=== PATIENT | female | born 1965 ===

== ENCOUNTER 2017-01-13 20:02 | Emergency (ER) | payer MEDICAID ==
[2017-01-13 20:19] VITALS: BMI 25.3
[2017-01-13 20:21] VITALS: BP 106/71; PULSE 98; RESP 19; TEMP 98.4; O2SAT 99
[2017-01-13] MEDS ORDERED: Oxycodone/Acetaminophen 10/325 mg Tab PO STA (20:37)
--- NOTE | 2017-01-13 20:47 | ED PDOC ---
Arrival/HPI <Jose Cardoza - Last Filed: 01/13/17 21:49> <HaydeMariposa - Last Filed: 01/13/17 22:50> - General Chief Complaint: Trauma Time Seen by Provider: 01/13/17 20:22 - History of Present Illness Narrative History of Present Illness (Text): CC: fall last night and pain in wrist arm and shoulder This patient is a 51yo F w/ no Past medical history who is coming to the ER after she fell last night walking down the stairs when it was dark, missed her foot, and fell onto her right hand outstretched and now has pain at her right wrist, right humerus and right shoulder. She can feel her fingers, and reports no numbess or tingling at the sites. She denies fevers/chills, headache, chest pain, shortness of breath, abdominal pain, Nausea, vomiting, diarrhea, lower extremity pain/swelling. 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; no adverse reaction to anesthesia Meds: denies FamHx: Denies Social: smokes 1ppd/30 years, denies illicit drugs, drinks socially, lives alone independent in all IADL and ADL (Jose Cardoza) Past Medical History - Provider Review Nursing Documentation Reviewed: Yes - Travel History Have you recently traveled outside [place] w/in the past 3 mons?: No - Past History Past History: No Previous - Cardiac Hx Cardiac Disorders: No - Pulmonary Hx Respiratory Disorders: No - Neurological Hx Neurological Disorder: No - HEENT Hx HEENT Disorder: No - Renal Hx Renal Disorder: No - Endocrine/Metabolic Hx Endocrine Disorders: No - Hematological/Oncological Hx Blood Disorders: No - Integumentary Hx Dermatological Disorder: No - Musculoskeletal/Rheumatological Other/Comment: right hand middle finger amputation. - Gastrointestinal Hx Gastrointestinal Disorders: No - Genitourinary/Gynecological Hx Genitourinary Disorders: No - Psychiatric Hx Psychophysiologic Disorder: No Hx Substance Use: No <Jose Cardoza - Last Filed: 01/13/17 21:49> Family/Social History - Physician Review Nursing Documentation Reviewed: Yes Family/Social History: No Known Family HX Smoking Status: Heavy Smoker > 10 Cigarettes Daily Hx Alcohol Use: No Hx Substance Use: No <Jose Cardoza - Last Filed: 01/13/17 21:49> Allergies/Home Meds <Jose Cardoza - Last Filed: 01/13/17 21:49> <Mariposa Lock - Last Filed: 01/13/17 22:50> Allergies/Adverse Reactions: Allergies No Known Allergies Allergy (Verified 01/13/17 20:19) Home Medications: Home Meds Medication Instructions Recorded Confirmed Acetaminophen with Codeine 1 tab PO TID 01/13/17 01/13/17 [Tylenol with Codeine No. 4 300 mg-60 mg] Review of Systems - Physician Review All systems were reviewed & negative as marked: Yes - Review of Systems Constitutional: absent: Fatigue, Weight Change Eyes: absent: Vision Changes ENT: absent: Hearing Changes, Tinnitus Respiratory: absent: SOB, Cough, Sputum Cardiovascular: absent: Chest Pain, Palpitations Gastrointestinal: absent: Abdominal Pain, Stool Changes Genitourinary Female: absent: Dysuria, Frequency, Hematuria Musculoskeletal: Arthralgias. absent: Back Pain, Joint Swelling Skin: absent: Rash, Pruritis Neurological: absent: Headache, Dizziness Endocrine: absent: Diaphoresis Hemo/Lymphatic: absent: Adenopathy Psychiatric: absent: Anxiety <Jose Cardoza - Last Filed: 01/13/17 21:49> Physical Exam Vital Signs Reviewed: Yes Temperature: Afebrile Blood Pressure: Normal Pulse: Regular Respiratory Rate: Normal Appearance: Positive for: Well-Appearing, Non-Toxic, Uncomfortable Pain Distress: None Mental Status: Positive for: Alert and Oriented X 3 - Systems Exam Head: Present: Atraumatic Pupils: Present: PERRL Extroacular Muscles: Present: EOMI Conjunctiva: Present: Normal Mouth: Present: Moist Mucous Membranes Neck: Present: Normal Range of Motion Respiratory/Chest: Present: Clear to Auscultation, Good Air Exchange. No: Respiratory Distress Cardiovascular: Present: Regular Rate and Rhythm, Normal S1, S2. No: Murmurs Abdomen: Present: Normal Bowel Sounds. No: Tenderness, Distention Back: Present: Normal Inspection. No: CVA Tenderness Upper Extremity: Present: NORMAL PULSES, Tenderness, Neurovascularly Intact. No : Normal Inspection (right shoulder is lower than the left, tenderness at anatomical snuff box, pain at biceps tendon insertion to shoulder, pain at humerus midshaft, limited range of motion on the right, pain with passive motion testing as well), Edema, Normal ROM, Swelling, Erythema, Temperature Abnormalties Lower Extremity: Present: Normal Inspection. No: Edema, CALF TENDERNESS Neurological: Present: GCS=15, CN II-XII Intact, Speech Normal Skin: Present: Warm Psychiatric: Present: Alert, Oriented x 3 <Jose Cardoza - Last Filed: 01/13/17 21:49> Vital Signs Temp Pulse Resp BP Pulse Ox 01/13/17 20:21 98.4 F 98 H 19 106/71 99 01/13/17 20:20 98.4 F 98 H 19 106/71 99 Medical Decision Making <Jose Cardoza - Last Filed: 01/13/17 21:49> <Mariposa Lock - Last Filed: 01/13/17 22:50> ED Course and Treatment: 01/13/17 20:48 ddx: Sprain vs break imaging pain control dispo and reassess (Jose Cardoza) 01/13/17 22:49 Patient with exam with ttp near snuff box with no swelling and FROM and neurovascularly intact. No fx seen on xray - placed in thumb spica and instructed to follow up with ortho. (Mariposa Lock) - RAD Interpretation Radiology Orders: 01/13/17 20:32 HUMERUS RIGHT [RAD] Stat LS SPINE AP/LAT [RAD] Stat SHOULDER RIGHT [RAD] Stat WRIST, RIGHT 3 VIEWS [RAD] Stat 01/13/17 21:52 HAND RIGHT 3 VIEWS [RAD] Stat - Medication Orders Current Medication Orders: Discontinued Medications Baclofen (Lioresal) 10 mg PO ONCE STA Stop: 01/13/17 20:35 Last Admin: 01/13/17 21:29 Dose: 10 mg Ketorolac Tromethamine (Toradol) 60 mg IM STAT STA Stop: 01/13/17 20:35 Last Admin: 01/13/17 20:54 Dose: 60 mg MAR Pain Assessment Document 01/13/17 20:54 RD (Rec: 01/13/17 20:55 RD [id number]) Pain Reassessment Is this a pain reassessment? No Sleep Is patient sleeping during reassessment? No Presence of Pain Presence of Pain Yes IM Administration Charges Document 01/13/17 20:54 RD (Rec: 01/13/17 20:55 RD [id number]) Injection Site MAR Injection Site Left Deltoid Charges for Administration # of IM Administrations 1 Oxycodone/Acetaminophen (Percocet 10/325 Mg Tab) 1 tab PO STAT STA Stop: 01/13/17 20:38 Last Admin: 01/13/17 20:55 Dose: 1 tab MAR Pain Assessment Document 01/13/17 20:55 RD (Rec: 01/13/17 20:55 RD [id number]) Pain Reassessment Is this a pain reassessment? No Sleep Is patient sleeping during reassessment? No Presence of Pain Presence of Pain Yes - PA / FORM COVERER / Resident Statement MD/DO has reviewed & agrees with the documentation as recorded. MD/DO has examined the patient and agrees with the treatment plan. <Mariposa Lock - Last Filed: 01/13/17 22:50> Disposition/Present on Arrival - Present on Arrival Any Indicators Present on Arrival: No History of DVT/PE: No History of Uncontrolled Diabetes: No Urinary Catheter: No History of Decub. Ulcer: No History Surgical Site Infection Following: None - Disposition Have Diagnosis and Disposition been Completed?: Yes Disposition Time: 22:00 Patient Plan: Discharge <Jose Cardoza - Last Filed: 01/13/17 21:49> <Mariposa Lock - Last Filed: 01/13/17 22:50> - Disposition Diagnosis: Trauma Disposition: HOME/ ROUTINE Condition: FAIR Additional Instructions: Please make sure to ice the affected areas 3-4 times a day for 20 minutes, this will help with inflammation Please take ibuprofen OTC for your pain and inflammation as well Please follow up with the orthopedist that is in your discharge paperwork as you will need further scans to evaluate your joints Please wear Prescriptions: Ibuprofen [Motrin Tab] 800 mg PO TID PRN #20 tab PRN Reason: Pain, Mild (1-3) Referrals: Rama Peterson, [Primary Care Provider] - Follow up with primary Jagdish Walker MD [Staff Provider] - Follow up with primary Forms: [employer] (Turkish)
--- NOTE | 2017-01-14 09:11 | RAD ---
PROCEDURE: Radiographs of the right humerus. HISTORY: truama COMPARISON: None. FINDINGS: BONES: Normal. No fracture or focal lesion. SOFT TISSUES: Normal. OTHER FINDINGS: None. IMPRESSION: Normal radiographs of right humerus.
--- NOTE | 2017-01-14 09:11 | RAD ---
PROCEDURE: Radiographs of the Right Shoulder HISTORY: trauma COMPARISON: No prior. FINDINGS: BONES: Normal. No fracture. JOINTS: Normal. Glenohumeral and acromioclavicular joints preserved. No osteoarthritis. SOFT TISSUES: Normal. OTHER FINDINGS: None. IMPRESSION: Normal radiographs of the right shoulder.
--- NOTE | 2017-01-14 09:12 | RAD ---
PROCEDURE: Right Wrist Radiographs. HISTORY: trauma COMPARISON: None. FINDINGS: BONES: Normal. No fracture. JOINTS: Normal. No dislocation. SOFT TISSUES: Normal. OTHER FINDINGS: None. IMPRESSION: Normal right wrist radiographs.
--- NOTE | 2017-01-14 09:13 | RAD ---
PROCEDURE: Radiographs of the Lumbar Spine. HISTORY: trauma COMPARISON: No prior. FINDINGS: BONES: Normal alignment. No listhesis. No fracture. DISC SPACES: Unremarkable. OTHER FINDINGS: None. IMPRESSION: Unremarkable radiographs of the lumbar spine.
--- NOTE | 2017-01-14 09:16 | RAD ---
PROCEDURE: Right Hand Radiographs. HISTORY: trauma COMPARISON: None. 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 No acute findings JOINTS: Normal. No osteoarthritic changes. SOFT TISSUES: Normal. OTHER FINDINGS: None. IMPRESSION: No acute findings
== END 2017-01-13 22:00 | disposition home or self-care (01) ==
LOC: ED 20:02
DX: T14.90XA Injury, unspecified, initial encounter (principal); W10.9XXA Fall (on) (from) unspecified stairs and steps, initial encounter; Y93.01 Activity, walking, marching and hiking
CPT/HCPCS: 72100; 73030; 73060; 73110; 73130; 96372; 99284; J1885